=== PATIENT | male | born 1970 | race Caucasian/White ===

== ENCOUNTER 2018-11-23 05:30 | Inpatient (IN) | payer OTHER ==
[2018-11-23] VITALS (31 sets, daily range): BP systolic 106–156; BP diastolic 65–95; PULSE 55–110; RESP 12–22; Ht 165.1 cm; Wt 83.1 kg
[~2018-11-23] VITALS: Ht 165.1 cm; Wt 83.1 kg
[2018-11-23] MEDS ORDERED: RANITIDINE 150 MG TAB PO SCH (06:00)
[2018-11-23] MEDS ORDERED: ACETAMINOPHEN 325 MG TAB PO PRN ×2 (06:30→10:00)
[2018-11-23] MEDS ORDERED: LACTATED RINGER'S 1,000 ML IV SCH (06:30)
[2018-11-23] MEDS ORDERED: NA PHOSPHATE/BIPHOS 133 ML ENEMA PR PRN (06:30)
[2018-11-23] MEDS ORDERED: CEFAZOLIN 2 GM/50 ML (PMX) 50 ML IVPB SCH (06:30)
[2018-11-23] MEDS ORDERED: POLYMYXIN/BACITRACIN 1L IRRIG ONE (06:48)
[2018-11-23] MEDS ORDERED: THROMBIN 5000 UNIT (RECOTHROM) VIAL ONE (06:48)
[2018-11-23] MEDS ORDERED: BUPIVACAINE 0.25% (MPF) 30 ML INJ ONE (06:48)
[2018-11-23] MEDS ORDERED: GELATIN SIZE 100 SPONGE ONE (06:48)
[2018-11-23] MEDS ORDERED: PROPOFOL 20 ML ONE (07:29)
[2018-11-23] MEDS ORDERED: LIDOCAINE 2% (SDV) 5 ML INJ ONE (07:29)
[2018-11-23] MEDS ORDERED: morphine 10 MG INJ ONE (07:29)
[2018-11-23] MEDS ORDERED: ROCURONIUM 50 MG INJ ONE (07:29)
[2018-11-23] MEDS ORDERED: LABETALOL HCL 20MG INJ ONE (08:00)
[2018-11-23] MEDS ORDERED: SUGAMMADEX SODIUM 200 MG/2 ML VIAL IV ONE (09:15)
[2018-11-23] MEDS ORDERED: ONDANSETRON 4 MG INJ IV PRN ×2 (09:30→10:00)
[2018-11-23] MEDS ORDERED: FENTAnyl 50 MCG/ML VIAL IV PRN ×3 (09:30)
[2018-11-23] MEDS ORDERED: DIPHENHYDRAMINE 50 MG INJ IV PRN (09:30)
[2018-11-23] MEDS ORDERED: hydrALAzine 20 MG INJ IV PRN (09:30)
[2018-11-23] MEDS ORDERED: OXYCODONE/ACETAMINOPHEN (5/325) TAB PO PRN ×2 (09:30)
[2018-11-23] MEDS ORDERED: HYDROmorphONE 1 MG/5 ML IV SYRINGE IV PRN ×3 (09:30)
[2018-11-23] MEDS ORDERED: LABETALOL HCL 20MG INJ IV PRN (09:30)
[2018-11-23] MEDS ORDERED: METOCLOPRAMIDE 10 MG INJ IV PRN (09:30)
[2018-11-23] MEDS ORDERED: KETOROLAC 30 MG INJ IV PRN (09:30)
[2018-11-23] MEDS ORDERED: ALBUTEROL 0.083% (NEB) 2.5 MG/3 ML AMP HHN PRN (09:30)
[2018-11-23] MEDS ORDERED: EPHEDrine 25 MG/5 ML SYG IV PRN (09:30)
[2018-11-23] MEDS ORDERED: MEPERIDINE 25 MG INJ IV PRN (09:30)
[2018-11-23] MEDS ORDERED: BETHANECHOL 25 MG TAB PO PRN (10:00)
[2018-11-23] MEDS ORDERED: AL HYDROX/MG HYDROX/SIMETH 30 ML CUP PO PRN (10:00)
[2018-11-23] MEDS ORDERED: DIAZEPAM 10 MG/2 ML SYG IM PRN (10:00)
[2018-11-23] MEDS ORDERED: HYDROCODONE/APAP (5/325) TAB PO PRN (10:00)
[2018-11-23] MEDS ORDERED: PROCHLORPERAZINE 10 MG TAB PO PRN (10:00)
[2018-11-23] MEDS ORDERED: DIAZEPAM 5 MG TAB PO PRN (10:00)
[2018-11-23] MEDS ORDERED: NACL 0.9% 3 ML SYG IV SCH (10:00)
[2018-11-23] MEDS ORDERED: NALOXONE (0.4 MG/ML) INJ IV PRN (10:00)
[2018-11-23] MEDS ORDERED: ZOLPIDEM 5 MG TAB PO PRN (10:00)
[2018-11-23] MEDS ORDERED: TRIMETHOBENZAMIDE 100 MG/ML VIAL IM PRN (10:00)
[2018-11-23] MEDS ORDERED: CEPASTAT LOZENGE MT PRN (10:00)
[2018-11-23] MEDS ORDERED: DIPHENHYDRAMINE 50 MG CAP PO PRN (10:00)
[2018-11-23] MEDS: HYDROmorphONE 0.2 MG/ML PCA IV SCH ×2 (10:22→21:17)
[2018-11-23] MEDS: DEXTROSE 5%-0.45% NACL 1,000 ML IV SCH ×2 (13:48→19:38)
[2018-11-23] MEDS: RANITIDINE 150 MG TAB PO SCH (21:17)
[2018-11-24] MEDS: DEXTROSE 5%-0.45% NACL 1,000 ML IV SCH (00:40)
[2018-11-24 02:00] VITALS: BP 116/70; PULSE 74; RESP 20
[2018-11-24] MEDS: HYDROmorphONE 0.2 MG/ML PCA IV SCH (06:34)
[2018-11-24] MEDS ORDERED: BETHANECHOL 25 MG TAB PO PRN (08:00)
[2018-11-24] MEDS: RANITIDINE 150 MG TAB PO SCH (08:17)
[2018-11-24] MEDS: FERROUS SULFATE (EC) 325 MG TAB PO SCH ×2 (08:18→12:58)
[2018-11-24] MEDS: HYDROCODONE/APAP (5/325) TAB PO PRN ×3 (08:19→17:23)
[2018-11-24] MEDS ORDERED: ASCORBIC ACID 500 MG TAB PO SCH (09:00)
[2018-11-24] MEDS ORDERED: DOCUSATE SODIUM 100 MG CAP PO SCH (09:00)
[2018-11-24 09:16] VITALS: BP 116/61; PULSE 80; RESP 19
[2018-11-24 16:06] VITALS: BP 118/71; PULSE 80; RESP 18
== END 2018-11-24 19:05 | disposition home or self-care (01) | DRG 520 ==
LOC: REC 05:30 → EDSTATUS 07:00 → MS1 13:57
PROVIDERS: ADMIT Orthopaedic Surgery; ATTEND Orthopaedic Surgery
PROC: 00BY0ZX Excision of Lumbar Spinal Cord, Open Approach, Diagnostic (ICD-10-PCS; 2018-11-23)
PROC: 01NB0ZZ Release Lumbar Nerve, Open Approach (ICD-10-PCS; principal; 2018-11-23 07:00)
DX: M48.061 Spinal stenosis, lumbar region without neurogenic claudication (principal); D17.79 Benign lipomatous neoplasm of other sites
CPT/HCPCS: 72020; 80048; 81001; 85014; 85018; 86850; 86900; 86901; 86920; 87086; 88304; 97116; 97162; 97530; J0690; J1170; J2270; J3010; J7042